=== PATIENT | female | born 1940 | race Caucasian/White ===

== ENCOUNTER 2019-06-25 03:34 | Emergency (ER) | payer OTHER ==
[2019-06-25] MEDS ORDERED: ONDANSETRON 4 MG/2 ML VIAL ONE (03:50)
[2019-06-25] MEDS ORDERED: MORPHINE 4 MG/ML SYR ONE (03:50)
[2019-06-25] MEDS ORDERED: LIDOCAINE 1% W/EPI 1:100,000 MDV 20 ML VIAL ONE (04:29)
--- NOTE | 2019-06-25 04:49 | EDPHYS ---
Physician Documentation [facility] Name: Jackie Jin Age: 79 yrs Sex: Female : 1940 Arrival Date: 06/25/2019 Time: 03:36 Bed 7 Private MD: ED Physician Taina Meneses HPI: 06/24 04:45 This 79 yrs old Female presents to ER via Ambulatory with complaints of Fall ma2 Injury - Arm Pain. 04:45 Details of fall: The patient fell from an upright position. Onset: The symptoms/episode ma2 began/occurred suddenly, 1 hour(s) ago. Severity of symptoms: At their worst the symptoms were severe, in the emergency department the symptoms are unchanged. The patient has not experienced similar symptoms in the past. Historical: - Allergies: 04:01 Bactrim; rv 04:01 Biaxin; rv 04:01 Zithromax; rv - Home Meds: 04:01 Plavix 75 mg Oral tab 1 tab once daily [Active]; sertraline 50 mg oral tab 1 tab once rv daily [Active]; Metoprolol Tartrate 12.5 Oral 1 tab 2 times per day [Active]; enalapril maleate 2.5 mg Oral tab 1 tab once daily [Active]; Crestor 20 mg oral tab 1 tab once daily [Active]; pantoprazole 40 mg oral TbEC 1 tab once daily [Active]; ropinirole 1 mg oral tab 1 tab nightly [Active]; Vesicare 10 mg oral tab 1 tab once daily [Active]; Xyzal 5 mg oral tab as needed [Active]; - PSHx: 04:01 HIP REPLACEMENT; rv - Immunization history: Last tetanus immunization: unknown. - Social history:: Patient/guardian denies using alcohol, street drugs, The patient lives with family, Smoking status: Patient denies any tobacco usage or history of. - Family history:: not pertinent. ROS: 04:45 Constitutional: Negative for fever, chills, and weight loss, Eyes: Negative for injury, ma2 pain, redness, and discharge, ENT: Negative for injury, pain, and discharge, Neck: Negative for injury, pain, and swelling, Cardiovascular: Negative for chest pain, palpitations, and edema, Respiratory: Negative for shortness of breath, cough, wheezing, and pleuritic chest pain, Abdomen/GI: Negative for abdominal pain, nausea, diarrhea, and constipation, Back: Negative for injury and pain, MS/Extremity: Negative for injury and deformity, Skin: Negative for injury, rash, and discoloration, Neuro: Negative for headache, weakness, numbness, tingling, and seizure. 04:45 All other systems are negative. Exam: 04:45 Constitutional: This is a well developed, well nourished patient who is awake, alert, ma2 and in no acute distress. Neck: Trachea midline, no thyromegaly or masses palpated, and no cervical lymphadenopathy. Supple, full range of motion without nuchal rigidity, or vertebral point tenderness. No Meningismus. Chest/axilla: Normal chest wall appearance and motion. Nontender with no deformity. No lesions are appreciated. Cardiovascular: Regular rate and rhythm with a normal S1 and S2. No gallops, murmurs, or rubs. Normal PMI, no JVD. No pulse deficits. Respiratory: Lungs have equal breath sounds bilaterally, clear to auscultation and percussion. No rales, rhonchi or wheezes noted. No increased work of breathing, no retractions or nasal flaring. Abdomen/GI: Soft, non-tender, with normal bowel sounds. No distension or tympany. No guarding or rebound. No evidence of tenderness throughout. Skin: Warm, dry with normal turgor. Normal color with no rashes, no lesions, and no evidence of cellulitis. MS/ Extremity: left forearm deformity neurvascular intact, skin wnl. Pulses equal, no cyanosis. Neurovascular intact. Full, normal range of motion. Neuro: Awake and alert, GCS 15, oriented to person, place, time, and situation. Cranial nerves II-XII grossly intact. Motor strength 5/5 in all extremities. Sensory grossly intact. Cerebellar exam normal. Normal gait. Psych: Awake, alert, with orientation to person, place and time. Behavior, mood, and affect are within normal limits. Vital Signs: 03:52 BP 170 / 84; Pulse 75; Resp 21; Temp 97.5; Pulse Ox 100% on R/A; Weight 68.04 kg; rv Height 5 ft. 4 in. (162.56 cm); Pain 10/10; 05:17 BP 145 / 76; Pulse 71; Resp 16; Temp 97.6; Pulse Ox 100% on R/A; Pain 5/10; rv 03:52 Body Mass Index 25.75 (68.04 kg, 162.56 cm) rv Jack Coma Score: 03:55 Eye Response: spontaneous(4). Verbal Response: oriented(5). Motor Response: obeys rv commands(6). Total: 15. Trauma Score (Adult): 03:55 Eye Response: spontaneous(1); Verbal Response: oriented(1); Motor Response: obeys rv commands(2); Systolic BP: > 89 mm Hg(4); Respiratory Rate: 10 to 29 per min(4); Jack Score: 15; Trauma Score: 12 Procedures: 05:12 Splinting: Splint applied to left arm using valdemar wrap, Orthoglass splint, applied by ma2 myself. tech. post reduction film - Examined by me, post splint application: neurovascular intact, 2+ distal pulses palpable, brisk capillary refill noted, Patient tolerated well. Reduction: of the left wrist, using traction, manipulation, Immobilized with wrist splint, Patient tolerated well. MDM: 03:41 Patient medically screened. ma2 04:45 Differential diagnosis: abrasion, fracture, sprain, strain. Data reviewed: vital signs, [facility] nurses notes. Counseling: I had a detailed discussion with the patient and/or guardian regarding: the historical points, exam findings, and any diagnostic results supporting the discharge/admit diagnosis, the presence of at least one elevated blood pressure reading (>120/80) during this emergency department visit, the need for outpatient follow up. Response to treatment: the patient's symptoms have markedly improved after treatment. 05:15 ED course: no drug seeking per banquet attendant aware . ma2 06/24 03:46 Order name: Hand Left 3 View XRAY co2 06/24 03:46 Order name: Forearm Left XRAY co2 06/24 04:45 Order name: Splint: sugar tongue left arm; Complete Time: 05:12 ma2 06/24 04:45 Order name: Arm-Sling; Complete Time: 05:12 ma2 Administered Medications: 03:50 Drug: Zofran (Ondansetron) 4 mg Route: IVP; Site: right antecubital; rr5 05:22 Follow up: Response: No adverse reaction rv 03:52 Drug: morphine 4 mg {Note: rass 0.} Route: IVP; Site: right antecubital; rr5 05:22 Follow up: Response: No adverse reaction; Marked relief of symptoms; Pain is decreased; rv RASS: Alert and Calm (0) 05:06 Drug: Dilaudid 1 mg {Note: rass 0.} Route: IVP; Site: right antecubital; rr5 05:22 Follow up: Response: No adverse reaction; Marked relief of symptoms; Pain is decreased; rv RASS: Alert and Calm (0) Disposition: 06/25/19 04:49 Discharged to Home. Impression: Colles' fracture of left radius. - Condition is Stable. - Discharge Instructions: Forearm Fracture, [id number]. - Prescriptions for Tramadol 50 mg Oral Tablet - take 1 tablet by ORAL route every 8 hours as needed; 12 tablet. - Medication Reconciliation Form, Thank You Letter, Antibiotic Education, Prescription Opioid Use form. - Follow up: Private Physician; When: Tomorrow; Reason: If symptoms return, Continuance of care. Follow up: Zach Claudio MD; When: Tomorrow; Reason: Continuance of care. Signatures: Dispatcher [employer] EDMS Taina Meneses MD MD ma2 Andrew Hurtado RN RN rv Dennis Licona RN RN rr5 Corrections: (The following items were deleted from the chart) 04:50 04:49 06/25/2019 04:49 Discharged to Home. Impression: Colles' fracture of left radius. ma2 Condition is Stable. Forms are Medication Reconciliation Form, Thank You Letter, Antibiotic Education, Prescription Opioid Use. Follow up: Private Physician; When: Tomorrow; Reason: If symptoms return, Continuance of care. ma2 05:21 04:50 06/25/2019 04:49 Discharged to Home. Impression: Colles' fracture of left radius. rv Condition is Stable. Discharge Instructions: Forearm Fracture, [id number]. Forms are Medication Reconciliation Form, Thank You Letter, Antibiotic Education, Prescription Opioid Use. Follow up: Private Physician; When: Tomorrow; Reason: If symptoms return, Continuance of care. Follow up: Dr. Zach Claudio; When: Tomorrow; Reason: Continuance of care. ma2
--- NOTE | 2019-06-25 04:49 | ER ---
Nurse's Notes [facility] Name: Jackie Jin Age: 79 yrs Sex: Female : 1940 Arrival Date: 06/25/2019 Time: 03:36 Bed 7 Private MD: Diagnosis: Colles' fracture of left radius Presentation: 06/24 03:46 Chief complaint: Patient states: I WAS GOING BACK TO THE BED WHEN I TURNED BACK TO GET rv SOME LOZENGES AND I HIT THE WALL SO HARD THAT I BOUNCED AND FELL ON THE FLOOR ON MY LEFT SIDE. DENIES LOC. PAIN IS ONLY ON THE WRIST. Care prior to arrival: None. Mechanism of Injury: Fall from standing position. an unknown distance. Trauma event details: Injury occurred in the [facility], Injury occurred: at home. Injury occurred: 1999. 03:46 Acuity: PEDRO 3 rv 03:46 Method Of Arrival: Ambulatory rv 03:52 Coronavirus screen: The patient has NOT traveled to a country currently being monitored rv by the [facility] within the last 14 days. Proceed with normal triage procedures. The patient has NOT had contact with any known and/or suspected case of coronavirus. Proceed with normal triage procedures. Ebola Screen: No symptoms or risks identified at this time. Initial Sepsis Screen: Does the patient meet any 2 criteria? No. Patient's initial sepsis screen is negative. Does the patient have a suspected source of infection? No. Patient's initial sepsis screen is negative. Risk Assessment: Do you want to hurt yourself or someone else? Patient reports no desire to harm self or others. 04:02 Onset of symptoms was June 25, 2019 at 02:45. rv Trauma Activation: Not Applicable Physician: ED Physician; Name: ; Notified At: ; Arrived At: Physician: General Surgeon; Name: ; Notified At: ; Arrived At: Physician: Radiology; Name: ; Notified At: ; Arrived At: Physician: Respiratory; Name: ; Notified At: ; Arrived At: Physician: Lab; Name: ; Notified At: ; Arrived At: Historical: - Allergies: 04:01 Bactrim; rv 04:01 Biaxin; rv 04:01 Zithromax; rv - Home Meds: 04:01 Plavix 75 mg Oral tab 1 tab once daily [Active]; sertraline 50 mg oral tab 1 tab once rv daily [Active]; Metoprolol Tartrate 12.5 Oral 1 tab 2 times per day [Active]; enalapril maleate 2.5 mg Oral tab 1 tab once daily [Active]; Crestor 20 mg oral tab 1 tab once daily [Active]; pantoprazole 40 mg oral TbEC 1 tab once daily [Active]; ropinirole 1 mg oral tab 1 tab nightly [Active]; Vesicare 10 mg oral tab 1 tab once daily [Active]; Xyzal 5 mg oral tab as needed [Active]; - PSHx: 04:01 HIP REPLACEMENT; rv - Immunization history: Last tetanus immunization: unknown. - Social history:: Patient/guardian denies using alcohol, street drugs, The patient lives with family, Smoking status: Patient denies any tobacco usage or history of. - Family history:: not pertinent. Screenin:54 Abuse screen: Denies threats or abuse. Denies injuries from another. Nutritional rv screening: No deficits noted. Tuberculosis screening: No symptoms or risk factors identified. Fall Risk Fall in past 12 months (25 points). Secondary diagnosis (15 points) impaired mobility, IV access (20 points). Ambulatory Aid- None/Bed Rest/Nurse Assist (0 pts). Gait- Weak (10 pts.). Mental Status- Overestimates/Forgets Limitations (15 pts.). Total Soto Fall Scale indicates High Risk Score (45 or more points). Fall prevention measures have been instituted. Side Rails Up X 2 Placed Close to Nursing Station Frequent Obs/Assessments Occuring Family Present and informed to notify staff if the need to leave the bedside As available patient and family educated on Fall Prevention Program and Strategies. Primary Survey: 03:51 NO uncontrolled hemorrhage observed. Breathing/Chest: Respiratory pattern: tachypnea, rv Respiratory effort: spontaneous. Circulation: Skin color: pink. Disability Alert. Exposure/Environment: There is no evidence of uncontrolled external bleeding. Obvious injury(ies) are noted at this time: LEFT WRIST DEFORMITY AND SWELLING. 05:20 Reassessment Breathing/Chest Respiratory pattern Regular Respiratory effort Spontaneous.rv Assessment: 03:48 General: Appears in no apparent distress. comfortable, Behavior is calm, cooperative. rv Pain: Complains of pain in left wrist Pain does not radiate. Pain currently is 10 out of 10 on a pain scale. Neuro: Level of Consciousness is awake, alert, obeys commands, Oriented to person, place, time, situation. EENT: No signs and/or symptoms were reported regarding the EENT system. Cardiovascular: Patient's skin is warm and dry. Respiratory: Airway is patent Breath sounds are clear bilaterally. Musculoskeletal: Bony deformity noted of left wrist Swelling present in left wrist. 05:18 Reassessment: DR LARIOS DID CLOSED REDUCTION AT BEDSIDE WHILE [facility] IS APPLYING rv THE ORTHOGLASS SPLINT. PATIENT TOLERATED WELL. INSTRUCTED TO FF UP WITH THE ORTHO DOCTOR GARY. 05:21 Reassessment: TRAMADOL PRESCRIPTION GIVEN BY DR LARIOS. rv Vital Signs: 03:52 BP 170 / 84; Pulse 75; Resp 21; Temp 97.5; Pulse Ox 100% on R/A; Weight 68.04 kg; rv Height 5 ft. 4 in. (162.56 cm); Pain 10/10; 05:17 BP 145 / 76; Pulse 71; Resp 16; Temp 97.6; Pulse Ox 100% on R/A; Pain 5/10; rv 03:52 Body Mass Index 25.75 (68.04 kg, 162.56 cm) rv Savannah Coma Score: 03:55 Eye Response: spontaneous(4). Verbal Response: oriented(5). Motor Response: obeys rv commands(6). Total: 15. Trauma Score (Adult): 03:55 Eye Response: spontaneous(1); Verbal Response: oriented(1); Motor Response: obeys rv commands(2); Systolic BP: > 89 mm Hg(4); Respiratory Rate: 10 to 29 per min(4); Savannah Score: 15; Trauma Score: 12 ED Course: 03:36 Patient arrived in ED. ds1 03:37 Dennis Licona, ALEKS is Primary Nurse. rr5 03:41 Taina Larios MD is Attending Physician. ma2 03:48 Triage completed. rv 03:50 Inserted saline lock: 20 gauge in right antecubital area, using aseptic technique. rr5 03:54 Arm band placed on Patient placed Patient notified of wait time. rv 03:55 Patient has correct armband on for positive identification. Pulse ox on. NIBP on. rv 03:55 Patient maintains SpO2 saturation greater than 95% on room air. rv 04:03 Thermoregulation: warm blanket given to patient. rv 04:47 Hand Left 3 View XRAY In Process Unspecified. EDMS 04:48 Forearm Left XRAY In Process Unspecified. EDMS 04:50 Zach Claudio MD is Referral Physician. ma2 05:19 Assist provider with reduction of left wrist. IV discontinued, intact, bleeding rv controlled, No redness/swelling at site. Pressure dressing applied. Orthoglass splint: Sugar tong splint applied on left arm. Sling applied to left arm. Administered Medications: 03:50 Drug: Zofran (Ondansetron) 4 mg Route: IVP; Site: right antecubital; rr5 05:22 Follow up: Response: No adverse reaction rv 03:52 Drug: morphine 4 mg {Note: rass 0.} Route: IVP; Site: right antecubital; rr5 05:22 Follow up: Response: No adverse reaction; Marked relief of symptoms; Pain is decreased; rv RASS: Alert and Calm (0) 05:06 Drug: Dilaudid 1 mg {Note: rass 0.} Route: IVP; Site: right antecubital; rr5 05:22 Follow up: Response: No adverse reaction; Marked relief of symptoms; Pain is decreased; rv RASS: Alert and Calm (0) Outcome: 04:49 Discharge ordered by . ma2 05:20 Discharged to home via wheelchair, with family. rv 05:20 Condition: improved 05:20 Discharge instructions given to patient, family, Instructed on discharge instructions, follow up and referral plans. medication usage, Demonstrated understanding of instructions, follow-up care, medications, Prescriptions given X 1. 05:21 Patient left the ED. rv Signatures: Dispatcher [employer] [facility] Jorgito Cece ds1 Taina Larios MD MD ma2 Andrew Hurtado RN RN rv Dennis Licona, RN RN rr5
[2019-06-25] MEDS ORDERED: HYDROMORPHONE HCL 1 MG/ML INJ ONE (05:09)
[2019-06-25 05:55] VITALS: BP 145/76; TEMP 97.6; O2SAT 100
--- NOTE | 2019-06-25 08:33 | RAD REPORT ---
EXAM DESCRIPTION: RAD - Forearm Left - 06/25/2019 4:47 am CLINICAL HISTORY: PAIN Fall, pain and injury COMPARISON: None FINDINGS: Left forearm and left hand- multiple projections are submitted Angulated and mildly overriding fracture of the distal shaft of the ulna seen. Displaced intra-articu lar fracture of the distal radius also present. Ulnar styloid avulsion fracture seen. Moderate soft t issue swelling is evident.
--- NOTE | 2019-06-25 11:14 | RAD REPORT ---
EXAM DESCRIPTION: RAD - Hand Left 3 View - 06/25/2019 4:47 am CLINICAL HISTORY: PAIN Fall, pain and injury COMPARISON: None FINDINGS: Left forearm and left hand- multiple projections are submitted Angulated and mildly overriding fracture of the distal shaft of the ulna seen. Displaced intra-articu lar fracture of the distal radius also present. Ulnar styloid avulsion fracture seen. Moderate soft t issue swelling is evident.
== END 2019-06-25 05:21 | disposition home or self-care (01) ==
LOC: ER 03:34
PROC: 0PSJXZZ Reposition Left Radius, External Approach (ICD-10-PCS; principal; 2019-06-25)
PROC: 0PSLXZZ Reposition Left Ulna, External Approach (ICD-10-PCS; 2019-06-25)
DX: S52.532A Colles' fracture of left radius, initial encounter for closed fracture (principal); S52.202A Unspecified fracture of shaft of left ulna, initial encounter for closed fracture; S52.612A Displaced fracture of left ulna styloid process, initial encounter for closed fracture; W18.00XA Striking against unspecified object with subsequent fall, initial encounter; Y93.9 Activity, unspecified; Y92.013 Bedroom of single-family (private) house as the place of occurrence of the external cause; Z88.1 Allergy status to other antibiotic agents; Z88.3 Allergy status to other anti-infective agents
CPT/HCPCS: 73130; 73090; 96375; 96374; 99285; 25565; J1170; J2405